=== PATIENT | female | born 1985 | race Caucasian/White ===

== ENCOUNTER 2016-12-17 11:22 | Emergency (ER) | payer OTHER ==
[~2016-12-17] VITALS: Ht 152.4 cm; Wt 79.4 kg
[2016-12-17 11:37] VITALS: BP 151/98
[2016-12-17] MEDS ORDERED: NAPROSYN500 MG PO (13:16)
[2016-12-17] MEDS ORDERED: FLEXERIL10 MG PO (13:16)
== END 2016-12-17 13:49 | disposition home or self-care (01) ==
LOC: EME 11:22
DX: S13.9XXA Sprain of joints and ligaments of unspecified parts of neck, initial encounter (principal); S50.02XA Contusion of left elbow, initial encounter; V49.40XA Driver injured in collision with unspecified motor vehicles in traffic accident, initial encounter
CPT/HCPCS: 99281; 99284